=== PATIENT | female | born 1980 | race Caucasian/White ===

== ENCOUNTER 2016-11-18 18:44 | Emergency (ER) | payer SELFPAY ==
[2016-11-18 19:18] VITALS: BP 138/57
[2016-11-18] MEDS ORDERED: Ketorolac INJ* 60 MG/2 ML VIAL IM ONE (19:40)
[2016-11-18] MEDS ORDERED: Cyclobenzaprine TAB* 10 MG PO ONE (19:42)
--- NOTE | 2016-11-18 19:47 | UC ---
Back Pain HPI - HPI Summary HPI Summary: Patient has chronic low back pain s/p lumbar fusion, she woke up 3 days ago, with acute spasm of the left shoulder and neck. HX of OA. nothing has improved it, gotten worse, pain is not tolerable anymore. denies any injury - History of Current Complaint Chief Complaint: UCBackPain Stated Complaint: SHOULDER/NECK PAIN Time Seen by Provider: 11/18/16 19:09 Hx Obtained From: Patient Hx Last Menstrual Period: 10/28/16 ?: No Onset/Duration: Sudden Onset, Lasting Days Timing: Lasting Days Severity Initially: Moderate Severity Currently: Severe Back Pain: Is Discrete @ Character: Dull, Throbbing, Spasmodic Aggravating: Movement Alleviating: Rest - Allergies/Home Medications Allergies/Adverse Reactions: Allergies Allergy/AdvReac Type Severity Reaction Status Date / Time Naproxen Allergy Intermediate Hives Verified 11/18/16 19:19 Amoxicillin Allergy Hives Verified 11/08/15 18:48 Clindamycin Allergy Swelling Verified 11/18/16 19:18 PMH/Surg Hx/FS Hx/Imm Hx Previously Healthy: Yes - Surgical History Surgical History: Yes Surgery Procedure, Year, and Place: C-Sections: 2000, 2005, 2007 /BACK SURGERY- L4,L5 09/29/13 AT [facility] [place] - Family History Known Family History: Negative: Cardiac Disease, Hypertension - Social History Alcohol Use: None Substance Use Type: None Smoking Status (MU): Heavy Every Day Tobacco Smoker Type: Cigarettes Amount Used/How Often: 1 PPD Length of Time of Smoking/Using Tobacco: 15+ years Have You Smoked in the Last Year: Yes - Immunization History Most Recent Influenza Vaccination: up to date Most Recent Tetanus Shot: up to date Most Recent Pneumonia Vaccination: never Review of Systems Constitutional: Negative Skin: Negative Eyes: Negative ENT: Negative Respiratory: Negative Cardiovascular: Negative Gastrointestinal: Negative Genitourinary: Negative Motor: Negative Musculoskeletal: Arthralgia, Decreased ROM, Myalgia Neurological: Negative Psychological: Negative All Other Systems Reviewed And Are Negative: Yes Physical Exam Triage Information Reviewed: Yes Appearance: Well-Appearing, Well-Nourished, Pain Distress Vital Signs: Initial Vital Signs Temp 98 F 11/18/16 19:06 Pulse 60 11/18/16 19:06 Resp 18 11/18/16 19:06 BP 138/57 11/18/16 19:06 Pulse Ox 97 11/18/16 19:06 Vital Signs Reviewed: Yes Eye Exam: Normal Eyes: Positive: Conjunctiva Clear ENT Exam: Normal ENT: Positive: Hearing grossly normal, Pharynx normal, TMs normal Dental Exam: Normal Neck exam: Normal Neck: Positive: Supple, Nontender, No Lymphadenopathy Respiratory Exam: Normal Respiratory: Positive: Chest non-tender, Lungs clear, Normal breath sounds Cardiovascular Exam: Normal Cardiovascular: Positive: RRR, No Murmur, Pulses Normal Abdominal Exam: Normal Abdomen Description: Positive: Nontender, No Organomegaly, Soft Bowel Sounds: Positive: Present Musculoskeletal: Positive: ROM Limited @ - with abduction, Other: - spams of the trapezius and neck musculature, erector spinae Neurological Exam: Normal Neurological: Positive: Alert, Muscle Tone Normal Psychological Exam: Normal Skin Exam: Normal Back Pain Course/Dx - Course Course Of Treatment: hx obtained, exam performed ,meds reviewed, toradol and flexeril given, patient is currently undergoing PT for her pain. - Differential Dx/Diagnosis Differential Diagnosis/HQI/PQRI: Arthritis, Herniated Disc, Strain, Sprain Provider Diagnoses: OA of the neck. Acture muscle spasm of upper back and neck Discharge - Discharge Plan Condition: Stable Disposition: HOME Patient Education Materials: Spasmodic Torticollis (ED) Additional Instructions: 1. take the medication as prescribed. 2. continue with PT. 3. Heat 4. Stretches and massage
== END 2016-11-18 20:25 | disposition home or self-care (01) ==
LOC: UCCORT 18:44
DX: M47.812 Spondylosis without myelopathy or radiculopathy, cervical region (principal); M62.830 Muscle spasm of back; Z88.6 Allergy status to analgesic agent; Z88.1 Allergy status to other antibiotic agents; F17.210 Nicotine dependence, cigarettes, uncomplicated
CPT/HCPCS: 96372; 99212; A9270-GY; G0463; J1885

== ENCOUNTER 2018-08-24 19:59 | Emergency (ER) | payer OTHER ==
[2018-08-24 21:38] VITALS: BP 139/82
[2018-08-24] MEDS ORDERED: Acetaminophen TAB* 325 MG PO ONE (22:09)
--- NOTE | 2018-08-24 22:09 | ED ---
Lower Extremity - HPI Summary HPI Summary: 38 yr old female with left ankle pain. Onset two days ago when she slipped on wet surface and she now has pain over the lateral malleolus and STS. She had a break in the left lateral malleolus from this past Apr and was managed with closed reduction and cast and boot by ortho. She has pain that is moderate and worse with weight bearing. - History of Current Complaint Chief Complaint: UCLowerExtremity Stated Complaint: LEFT FOOT INJURY Time Seen by Provider: 08/24/18 21:33 Hx Last Menstrual Period: 3 weeks Pain Intensity: 7 - Allergies/Home Medications Allergies/Adverse Reactions: Allergies Allergy/AdvReac Type Severity Reaction Status Date / Time amoxicillin Allergy Hives Verified 08/24/18 21:39 clindamycin Allergy Swelling Verified 08/24/18 21:39 naproxen Allergy Hives Verified 08/24/18 21:39 Home Medications: Home Medications Acetaminophen [Tylenol] 2 tab PO 08/24/18 [History] Ibuprofen TAB* [Motrin TAB* 400 MG] 400 mg PO Q6H PRN 08/24/18 [History Confirmed 08/24/18] PMH/Surg Hx/FS Hx/Imm Hx Endocrine/Hematology History: Denies: Hx Diabetes, Hx Thyroid Disease Cardiovascular History: Denies: Hx Hypertension, Hx Pacemaker/ICD Respiratory History: Denies: Hx Asthma, Hx Chronic Obstructive Pulmonary Disease (COPD) GI History: Denies: Hx Ulcer History: Denies: Hx Dialysis, Hx Renal Disease Sensory History: Denies: Hx Contacts or Glasses, Hx Hearing Aid Opthamlomology History: Denies: Hx Contacts or Glasses Psychiatric History: Denies: Hx Panic Disorder - Surgical History Surgery Procedure, Year, and Place: C-Sections: 2000, 2005, 2007 /[place] [facility] [place] Hx Anesthesia Reactions: Yes - SEVERE HEADACHE AFTER EACH Infectious Disease History: No Infectious Disease History: Denies: Hx Clostridium Difficile, Hx Hepatitis, Hx Human Immunodeficiency Virus (HIV), Hx of Known/Suspected MRSA, Hx Shingles, Hx Tuberculosis, Hx Known/ Suspected VRE, Hx Known/Suspected VRSA, History Other Infectious Disease, Traveled Outside the [place] in Last 30 Days - Family History Known Family History: Negative: Cardiac Disease, Hypertension - Social History Alcohol Use: None Hx Substance Use: No Substance Use Type: Reports: None Hx Tobacco Use: Yes Smoking Status (MU): Heavy Every Day Tobacco Smoker Type: Cigarettes Amount Used/How Often: 1 PPD Length of Time of Smoking/Using Tobacco: 15+ years Have You Smoked in the Last Year: Yes Review of Systems Constitutional: Negative Positive: Other - left ankle pain All Other Systems Reviewed And Are Negative: Yes Physical Exam Triage Information Reviewed: Yes Vital Signs On Initial Exam: Initial Vitals Temp Pulse Resp BP Pulse Ox 98.5 F 109 18 139/82 99 08/24/18 21:26 08/24/18 21:26 08/24/18 21:26 08/24/18 21:26 08/24/18 21:26 Vital Signs Reviewed: Yes Appearance: Positive: Well-Appearing, No Pain Distress Skin: Positive: Warm, Skin Color Reflects Adequate Perfusion Head/Face: Positive: Normal Head/Face Inspection Eyes: Positive: EOMI, BONI ENT: Positive: Normal ENT inspection Neck: Positive: Nontender Respiratory/Lung Sounds: Positive: Clear to Auscultation, Breath Sounds Present Cardiovascular: Positive: Pulses are Symmetrical in both Upper and Lower Extremities Abdomen Description: Negative: Distended Musculoskeletal: Positive: Other - left ankle with STS and tender over lateral malleolus. No tenderness over base of 5th metatarsal. Neurological: Positive: Sensory/Motor Intact, Alert, Oriented to Person Place, Time, CN Intact II-III Psychiatric: Positive: Normal Diagnostics - Vital Signs Vital Signs Temp Pulse Resp BP Pulse Ox 08/24/18 21:26 98.5 F 109 18 139/82 99 - Laboratory Lab Statement: Any lab studies that have been ordered have been reviewed, and results considered in the medical decision making process. - Radiology left ankle and tib fib Radiology Interpretation Completed By: ED Physician - non displaced acute on chronic left lateral malleolus fracture. Lower Extremity Course/Dx - Course Course Of Treatment: 38 yr old female with left ankle fracture, posterior splint applied by me. She was told not to bear weight, use crutches, and elevation. She has been walking on this the past couple of days. She has tylenol and motrin she has been taking at home. - Diagnoses Provider Diagnoses: Nondisplaced fracture, Closed left ankle fracture, Hypertension Discharge - Sign-Out/Discharge Documenting (check all that apply): Patient Departure All imaging exams completed and their final reports reviewed: No - Discharge Plan Condition: Good Disposition: HOME Patient Education Materials: Ankle Fracture (ED), Hypertension (ED) Referrals: CHELSEA Reyes [Primary Care Provider] - - Billing Disposition and Condition Condition: GOOD Disposition: Home
--- NOTE | 2018-08-25 07:59 | UC ---
- Progress Note Progress Note: Patients ankle and lower ext xray on left shows distal fibula fracture Patient needs to remain non-weight bearing with use of her crutches She needs to follow up with Orthopedics - Dr. Cunningham in [place] or [facility] in [place] - [phone] Course/Dx - Diagnoses Provider Diagnoses: Nondisplaced fracture, Closed left ankle fracture, Hypertension Discharge - Sign-Out/Discharge Documenting (check all that apply): Post-Discharge Follow Up All imaging exams completed and their final reports reviewed: Yes - Discharge Plan Condition: Good Disposition: HOME Patient Education Materials: Ankle Fracture (ED), Hypertension (ED) Referrals: Syed Cunningham MD [Medical Doctor] - 1 Day CHELSEA Reyes [Primary Care Provider] - - Billing Disposition and Condition Condition: GOOD Disposition: Home
== END 2018-08-24 22:25 | disposition home or self-care (01) ==
LOC: UCCORT 19:59
DX: S82.832A Other fracture of upper and lower end of left fibula, initial encounter for closed fracture (principal); W18.40XA Slipping, tripping and stumbling without falling, unspecified, initial encounter; Y92.9 Unspecified place or not applicable; Z88.6 Allergy status to analgesic agent; Z88.0 Allergy status to penicillin; F17.210 Nicotine dependence, cigarettes, uncomplicated
CPT/HCPCS: 99211; A9270-GY; G0463